=== PATIENT | male | born 1990 | race Caucasian/White ===

== ENCOUNTER 2024-06-19 13:46 | Emergency (ER) | payer OTHER ==
[2024-06-19 13:50] VITALS: RESP 18; BMI 25.8
[2024-06-19] MEDS ORDERED: DIPHTH,PERTUSS(ACELL),TET 0.5 ML DISP.SYRIN IM ONE (14:22)
[2024-06-19] MEDS ORDERED: ACETAMINOPHEN 325 MG TABLET (FP) ONE (14:22)
[2024-06-19] MEDS: DIPHTH,PERTUSS(ACELL),TET 0.5 ML DISP.SYRIN IM ONE (14:27)
[2024-06-19] MEDS: ACETAMINOPHEN 325 MG TABLET (FP) PO ONE (14:28)
[2024-06-19] MEDS ORDERED: ceFAZolin SODIUM 1 GM VIAL ONE (15:30)
[2024-06-19] MEDS: CEFAZOLIN 2 GM in DEXTROSE 5%-WATER - 50 ML IVPB ONE (16:04)
[2024-06-19 17:17] VITALS: BP 127/73; PULSE 65; TEMP 97.7
== END 2024-06-19 18:32 | disposition left against medical advice (07) ==
LOC: JER 13:46
PROC: 3E033NZ Introduction of Analgesics, Hypnotics, Sedatives into Peripheral Vein, Percutaneous Approach (ICD-10-PCS; principal; 2024-06-19)
PROC: 3E0234Z Introduction of Serum, Toxoid and Vaccine into Muscle, Percutaneous Approach (ICD-10-PCS; 2024-06-19)
DX: S92.421A Displaced fracture of distal phalanx of right great toe, initial encounter for closed fracture (principal); W31.2XXA Contact with powered woodworking and forming machines, initial encounter; Z23 Encounter for immunization
CPT/HCPCS: 73630-TC-RT-FY; 73660-TC-FY; 90471; 90715; 96365; 99284-25